=== PATIENT | male | born 1955 | race Caucasian/White ===

== ENCOUNTER → 2018-03-07 13:41 | Outpatient (CLI) | payer OTHER, SELFPAY ==
[2018-03-07 14:48] LABS: Anion Gap 7.9 mmol/L (3-11); BUN 17 mg/dL (7-18); CO2 30.1 mmol/L (21.0-32.0); CREATININE 0.87 mg/dL (0.70-1.30); Calcium 8.5 mg/dL (8.5-10.1); Chloride 105 mmol/L (98-107); Glucose 76 mg/dL (70-100); Potassium 4.2 mmol/L (3.5-5.1); Sodium 143 mmol/L (136-145)
[2018-03-08 10:13] LABS: PSA, Screening 6.3 ng/ml (0-4.5)
[2018-03-08 11:06] LABS: HIV-1/2 Ag & Ab Screen Negative (NEGAT)
[2018-03-08 11:07] LABS: Hepatitis C Ab w Rflx HCV PCR Negative (NEGAT)
== END ==
PROVIDERS: PCP Nurse Practitioner Family; Visit Provider Nurse Practitioner Family
DX: Z13.1 Encounter for screening for diabetes mellitus (principal); Z12.5 Encounter for screening for malignant neoplasm of prostate; Z11.59 Encounter for screening for other viral diseases; Z11.4 Encounter for screening for human immunodeficiency virus [HIV]
CPT/HCPCS: 36415; 80048; 84153; 86803; 87389

== ENCOUNTER 2018-06-27 14:58 | Outpatient (CLI) | payer OTHER, SELFPAY ==
[2018-06-29 08:52] LABS: PSA, Screening 6.4 ng/ml (0-4.5)
== END 2018-06-27 15:18 ==
PROVIDERS: PCP Nurse Practitioner Family; Visit Provider Nurse Practitioner Gerontology
DX: R97.20 Elevated prostate specific antigen [PSA] (principal); Z12.5 Encounter for screening for malignant neoplasm of prostate
CPT/HCPCS: 36415; 84153

== ENCOUNTER 2018-09-29 08:10 | Outpatient (CLI) | payer OTHER, SELFPAY ==
[2018-09-30 09:45] LABS: PSA, Screening 6.4 ng/ml (0-4.5)
== END 2018-09-29 08:30 ==
PROVIDERS: PCP Nurse Practitioner Family; Visit Provider Nurse Practitioner Gerontology
DX: Z12.5 Encounter for screening for malignant neoplasm of prostate (principal); R97.20 Elevated prostate specific antigen [PSA]
CPT/HCPCS: 36415; 84153

== ENCOUNTER 2019-04-06 08:22 | Outpatient (CLI) | payer OTHER, SELFPAY ==
[2019-04-07 11:23] LABS: PSA, Screening 9.6 ng/ml (0-4.5)
== END 2019-04-06 08:42 ==
PROVIDERS: PCP Nurse Practitioner Family; Visit Provider Nurse Practitioner Gerontology
DX: Z12.5 Encounter for screening for malignant neoplasm of prostate (principal)
CPT/HCPCS: 36415; 84153

== ENCOUNTER 2019-04-17 08:24 | Outpatient (CLI) | payer OTHER, SELFPAY ==
[2019-04-18 10:18] LABS: PSA, Screening 7.4 ng/ml (0-4.5)
== END 2019-04-17 08:44 ==
PROVIDERS: PCP Nurse Practitioner Family; Visit Provider Nurse Practitioner Gerontology
DX: R97.20 Elevated prostate specific antigen [PSA] (principal); Z12.5 Encounter for screening for malignant neoplasm of prostate
CPT/HCPCS: 36415; 84153

== ENCOUNTER 2019-07-20 15:12 | Outpatient (CLI) | payer OTHER, SELFPAY | END 2019-07-20 15:32 | PROVIDERS: PCP Nurse Practitioner Family; Visit Provider Nurse Practitioner Gerontology | DX: R97.20 Elevated prostate specific antigen [PSA] (principal); Z12.5 Encounter for screening for malignant neoplasm of prostate | CPT/HCPCS: 36415; 84153 ==

== ENCOUNTER 2019-11-13 00:57 | Outpatient (CLI) | payer OTHER, SELFPAY ==
[2019-11-15 17:35] LABS: Free PSA/PSA Ratio 0.11 ratio
== END 2019-11-13 01:17 ==
PROVIDERS: PCP Nurse Practitioner Family; Visit Provider Nurse Practitioner Gerontology
DX: R97.20 Elevated prostate specific antigen [PSA] (principal)
CPT/HCPCS: 36415; 84153; 84154

== ENCOUNTER 2020-05-07 15:51 | Outpatient (REF) | payer OTHER, SELFPAY ==
[2020-05-08 21:33] LABS: PSA, Screening 8.3 ng/mL (0.0-4.5)
== END 2020-05-07 16:11 ==
LOC: LBN 15:51
PROVIDERS: PCP Nurse Practitioner Family; Visit Provider Nurse Practitioner Gerontology
DX: R97.20 Elevated prostate specific antigen [PSA] (principal)
CPT/HCPCS: 84153

== ENCOUNTER 2021-06-06 03:41 | Outpatient (CLI) | payer OTHER, SELFPAY ==
[2021-06-06 18:26] LABS: PSA, Screening 9.9 ng/mL (0.0-4.5)
== END 2021-06-06 03:42 | disposition home or self-care (01) ==
PROVIDERS: PCP Nurse Practitioner Family; Visit Provider Nurse Practitioner Gerontology
DX: R97.20 Elevated prostate specific antigen [PSA] (principal); Z12.5 Encounter for screening for malignant neoplasm of prostate
CPT/HCPCS: 36415; 84153

== ENCOUNTER 2021-07-17 02:31 | Outpatient (CLI) | payer OTHER, SELFPAY ==
--- NOTE | 2021-07-17 07:15 | DI.US_ITS ---
Exam(s) US PROSTATE BIOPSY EXAM: US PROSTATE BIOPSY CLINICAL HISTORY: rising PSA,R97.20 TECHNIQUE: Ultrasound performed using standard protocol. COMPARISON: No exams were available for comparison FINDINGS: Ultrasound guidance was provided during rectal biopsy performed by the urologist. Radiologist was not present for this procedure. IMPRESSION: DATA REPOSITORY:
--- NOTE | 2021-07-17 10:30 | PROST_PTH ---
PATIENT: Kobe Van LOC: [facility] U#:[id number] AGE/SX: 65/M ROOM: RE07/17/[address]: Karley Barrett DNP : 1955 BED: DIS: 07/17/2021 SPEC #: [id number] RECD: 07/17/21 12:39 STATUS: ASHANTI RE #: [id number] TYREE: 07/17/21 10:[address]: Karley Barrett DEPT: Surgical Specimen RECD BY: Victoria Scanlon ENTERED: 07/17/21 12:46 SP TYPE: PROST OTHR DR: Shanita Matta APRN Tissues: 1 - PROSTATE NEEDLE BIOPSY 2 - PROSTATE NEEDLE BIOPSY 3 - PROSTATE NEEDLE BIOPSY 4 - PROSTATE NEEDLE BIOPSY 5 - PROSTATE NEEDLE BIOPSY 6 - PROSTATE NEEDLE BIOPSY 7 - PROSTATE NEEDLE BIOPSY 8 - PROSTATE NEEDLE BIOPSY 9 - PROSTATE NEEDLE BIOPSY 10 - PROSTATE NEEDLE BIOPSY 11 - PROSTATE NEEDLE BIOPSY 12 - PROSTATE NEEDLE BIOPSY Procedures: GROSS AND MICRO LEVEL 4 Comments: [id number]
--- NOTE | 2021-07-17 10:37 | ROE_ITS ---
Date of service: 07/17/21 Time of Service: 10:37 Operative Note Operative Note DATE OF PROCEDURE: 07/17/21 PRE-OP DIAGNOSIS: Elevated PSA POST-OP DIAGNOSIS: same PROCEDURE: Transrectal ultrasound-guided biopsy of the prostate SURGEON: Alexandre Saleh ANESTHESIA TYPE: Local By Surgeon Refer to Anesthesia Record ESTIMATED BLOOD LOSS: 10 PATHOLOGY: other (prostate biopsies) COMPLICATIONS: None Patient was transported to: no change Patient's condition: stable Implants: None Indications: This is a 65-year-old gentleman who has an elevated PSA of 9.9 ng/mL. He underwent a multiparameter prostate MRI which demonstrated an abnormal area in the mid to apical portion of the prostate concerning for prost ate cancer. He presents for prostate biopsy Findings: Hypoechoic area just to the right of midline in the mid to apical prostate Procedure Description: The patient was given a mechanical and antibiotic bowel prep. He was brought to the radiology suite on 07/17/2021. He was placed in the left lateral position. Transrectal imaging of the prostate was then performed using a variable megahertz transducer. The prostate was imaged in transverse and lateral planes. The prostatic volume was calculated at 28 cc. A periprostatic nerve block was then performed using 1% Xylocaine without epinephrine. A hypoechoic area was identified in the peripheral zone toward the apex of the prostate. This area seemed to be just right of the midline. Laterally directed biopsies were then taken from the prostate. Each biopsy was labeled and sent to pathology. Biopsies from the hypoechoic area were also nadya en. The patient tolerated this procedure with no complications.
== END 2021-07-17 02:51 ==
PROVIDERS: PCP Nurse Practitioner Family; Visit Provider Nurse Practitioner Gerontology
DX: R97.20 Elevated prostate specific antigen [PSA] (principal); C61 Malignant neoplasm of prostate
CPT/HCPCS: 55700; 88305; 76942

== ENCOUNTER 2021-08-27 00:34 | Outpatient (CLI) | payer OTHER, SELFPAY ==
--- NOTE | 2021-08-27 06:57 | DI.NM_ITS ---
Exam(s) NM BONE SCAN WHOLE BODY GRP EXAM: NM BONE SCAN WHOLE BODY GRP CLINICAL HISTORY: r/o mets,PROSTATE CA,C61. TECHNIQUE: This study was performed with IV injection of technetium 99 MDP 24.6 millicuries. Delayed imaging was performed at 3.5 hours post injection. COMPARISON: No exams were available for comparison FINDINGS: There is photopenic zone evident in the left hip consistent with arthroplasty. There is a focus in the upper right side of L1 vertebral body, and there is uptake seen in the lower cervical spine which is probably degenerative. No abnormal uptake in the remainder of the spinal col umn nor in the bones of the pelvis nor in the bones of the lower extremities. Also no abnormal uptak e seen in the rib cages on either side. No abnormal uptake in the shoulder girdles. No abnormal upt zeb seen in the skull. IMPRESSION: 1. No evidence of obvious osseous metastatic disease. However, there is focus of increased uptake se en in the right side of the L1 vertebral body and plain films of this area are recommended as the nex t step. Also cervical spine inferior aspect DATA REPOSITORY:
== END 2021-08-27 00:54 ==
PROVIDERS: PCP Nurse Practitioner Family; Visit Provider Urology
DX: C61 Malignant neoplasm of prostate (principal); R93.7 Abnormal findings on diagnostic imaging of other parts of musculoskeletal system; Z96.642 Presence of left artificial hip joint
CPT/HCPCS: 78306

== ENCOUNTER 2021-10-01 01:48 | Outpatient (CLI) | payer OTHER, SELFPAY ==
--- NOTE | 2021-10-01 | DI.RAD_ITS ---
Exam(s) XR CHEST 2V PA LATERAL EXAM: XR CHEST 2V PA LATERAL CLINICAL HISTORY: PROSTATE CA, PREOP,C61. TECHNIQUE: 2D digital imaging was performed. COMPARISON: No exams were available for comparison FINDINGS: 2 views: Heart size is normal. The mediastinum is not widened. Right lung is clear. There is scarring or platelike atelectasis in the left lung base, specifically in the inferior lingular segment. There are no pleural effusions IMPRESSION: Scarring or platelike atelectasis in the left lung base. No pleural effusions. DATA REPOSITORY: RADIATION DOSE DELIVERED:
== END 2021-10-01 02:08 ==
PROVIDERS: PCP Nurse Practitioner; Visit Provider Radiology Radiation Oncology
DX: C61 Malignant neoplasm of prostate (principal)
CPT/HCPCS: 71046

== ENCOUNTER 2021-10-01 01:48 | Outpatient (CLI) | payer OTHER, SELFPAY ==
--- NOTE | 2021-10-01 06:30 | DI.RAD_ITS ---
Exam(s) XR LUMBAR SPINE COMPLETE EXAM: XR LUMBAR SPINE COMPLETE CLINICAL HISTORY: uptake on bone scan. ? degenerative disease,c61. TECHNIQUE: 2D digital imaging was performed. COMPARISON: No exams were available for comparison FINDINGS: Five views of the lumbar spine There is no evidence of fracture, listhesis, nor pars interarticularis defects. There is advanced di sc space narrowing at L3-4 and L5-S1 levels and milder disc space narrowing at L4-5 level. Advanced disc space narrowing at T12-L1 level noted. Also moderate disc space narrowing at T11-T12. Only minimal facet degenerative changes. No scoliosis. Sacroiliac joints appear unremarkable. There is a left hip prosthesis. IMPRESSION: Multilevel degenerative disc disease as described above. If clinically indicated further study MRI c an be performed DATA REPOSITORY: RADIATION DOSE DELIVERED:
== END 2021-10-01 02:08 ==
PROVIDERS: PCP Nurse Practitioner; Visit Provider Nurse Practitioner
DX: C61 Malignant neoplasm of prostate (principal); M47.816 Spondylosis without myelopathy or radiculopathy, lumbar region; M47.817 Spondylosis without myelopathy or radiculopathy, lumbosacral region; M48.061 Spinal stenosis, lumbar region without neurogenic claudication; M48.07 Spinal stenosis, lumbosacral region; M48.05 Spinal stenosis, thoracolumbar region
CPT/HCPCS: 72110

== ENCOUNTER 2021-10-29 03:14 | Outpatient (CLI) | payer OTHER, SELFPAY ==
[2021-10-29 12:11] LABS: Abs Immature Grans 0.02 10^3/uL (0.0-0.06); Absolute Basophil Count 0.04 10^3/uL (0.0-0.2); Absolute Eosinophil Count 0.05 10^3/uL (0.0-0.7); Absolute Lymphocyte Count 0.99 10^3/uL (1.2-3.4); Absolute Monocyte Count 0.55 10^3/uL (0.1-0.8); Absolute Neutrophil Count 5.48 10^3/uL (1.2-6.7); Basophils % 0.6; Eosinophils % 0.7; HGB 14.9 g/dL (13.5-17.5); Immature Grans % 0.3; Lymphocytes % 13.9; MCH 26.6 pg (27.0-33.0); MCHC 31.7 % (32.0-36.0); MCV 83.8 fL (80-95); MPV 11.5 fL (8.0-11.0); Monocytes % 7.7; Neutrophils % 76.8; Nucleated RBC 0 %; Platelet Count 210 10^3/uL (130-400); RBC 5.61 10^6/uL (4.36-5.78); RDW 13.6 % (11.8-14.1); RDW-SD 42.1 fL; WBC 7.13 10^3/uL (4.4-10.8)
[2021-10-29 12:12] LABS: Bilirubin Negative (Negative); Blood Negative (Negative); Clarity Clear (Clear); Glucose Negative (Negative); Ketones Negative (Negative); Leukocyte Esterase Negative (Negative); Nitrite Negative (Negative); Specific Gravity >= 1.030 (1.005-1.025); Urobilinogen 0.2 EU/dL (Up TO 0.2); pH 5.5 (5-8)
[2021-10-29 12:23] LABS: Bacteria Negative HPF (Negative); C & S Indicated? No; Casts 0-2 Hyaline LPF (Negative); Crystals Negative HPF (Negative); Epithelial Cells Rare HPF (Negative); Mucus Trace (Negative); RBC Negative HPF (0-2); WBC Negative HPF (0-5)
[2021-10-29 13:54] LABS: ALT 29 U/L (16-63); AST 22 U/L (15-37); Albumin 3.7 g/dL (3.4-5.0); Alkaline Phosphatase 81 U/L (46-116); Anion Gap 8.3 mmol/L (3-11); BUN 17 mg/dL (7-18); Bilirubin, Total 0.5 mg/dL (0.2-1.0); CO2 29.7 mmol/L (21.0-32.0); Calcium 8.7 mg/dL (8.5-10.1); Calculated LDL 78 mg/dL (<100); Chloride 105 mmol/L (98-107); Cholesterol 153 mg/dL (<200); Glucose 98 mg/dL (74-106); HDL Cholesterol 43 mg/dL (40-60); Potassium 4.2 mmol/L (3.5-5.1); Sodium 143 mmol/L (136-145); Total Protein 6.9 g/dL (6.4-8.2); Triglyceride 161 mg/dL (<150)
== END 2021-10-29 03:15 | disposition home or self-care (01) ==
LOC: LBO 03:15
PROVIDERS: PCP Nurse Practitioner; Visit Provider Surgery
DX: C61 Malignant neoplasm of prostate (principal); Z13.220 Encounter for screening for lipoid disorders
CPT/HCPCS: 36415; 80053; 80061; 85027; 81003; 81015; 85025

== ENCOUNTER 2021-11-04 11:54 | Outpatient (CLI) | payer OTHER, SELFPAY ==
--- NOTE | 2021-11-04 12:45 | RT.EKG_ITS ---
APPROVED REPORT Exam: Resting ECG Reason for Exam: preop Patient Location: O HR:62 bpm ECG Measurements Heart Rate 62 AXIS IA 169 P 46 QRSd 105 QRS -66 QT 414 T -25 QTc 420 Conclusion Sinus rhythm...normal P axis, V-rate 60- 99 Left anterior fascicular block...axis(240,-40), init forces inf Nonspecific T abnormalities, inferior leads...T <-0.10mV, II III aVF
== END 2021-11-04 11:55 | disposition home or self-care (01) ==
LOC: RT 11:57
PROVIDERS: PCP Nurse Practitioner; Visit Provider Surgery

== ENCOUNTER 2021-11-10 09:19 | Outpatient (CLI) | payer OTHER, SELFPAY ==
[2021-11-10 11:35] LABS: Source Nasal/Nares
[2021-11-10 14:03] LABS: COVID-19 PCR Negative (Negative)
== END 2021-11-10 09:20 | disposition home or self-care (01) ==
PROVIDERS: PCP Nurse Practitioner; Visit Provider Surgery
DX: Z20.822 Contact with and (suspected) exposure to COVID-19 (principal); Z01.818 Encounter for other preprocedural examination
CPT/HCPCS: 87635

== ENCOUNTER 2022-03-05 03:48 | Outpatient (CLI) | payer OTHER, SELFPAY ==
[2022-03-06 18:49] LABS: PSA, Ultrasensitive <0.01 ng/mL (<= 4.5)
== END 2022-03-05 03:49 | disposition home or self-care (01) ==
LOC: LBO 03:48
PROVIDERS: PCP Nurse Practitioner; Visit Provider Nurse Practitioner Gerontology
DX: C61 Malignant neoplasm of prostate (principal)
CPT/HCPCS: 36415; 84153

== ENCOUNTER 2022-05-29 16:59 | Outpatient (CLI) | payer OTHER, SELFPAY ==
[2022-06-02 15:52] LABS: PSA, Ultrasensitive <0.01 ng/mL (<= 4.5)
== END 2022-05-29 17:00 | disposition home or self-care (01) ==
LOC: LBO 17:00
PROVIDERS: Nurse Practitioner Gerontology; PCP Nurse Practitioner; Visit Provider Nurse Practitioner
DX: C61 Malignant neoplasm of prostate (principal)
CPT/HCPCS: 36415; 84153

== ENCOUNTER 2022-09-10 10:26 | Outpatient (CLI) | payer OTHER, SELFPAY ==
[2022-09-14 14:43] LABS: PSA, Ultrasensitive <0.01 ng/mL (<= 4.5)
== END 2022-09-10 10:27 | disposition home or self-care (01) ==
LOC: LBO 10:27
PROVIDERS: PCP Nurse Practitioner; Visit Provider Nurse Practitioner Gerontology
DX: C61 Malignant neoplasm of prostate (principal)
CPT/HCPCS: 36415; 84153

== ENCOUNTER 2023-03-08 13:07 | Outpatient (CLI) | payer OTHER, SELFPAY ==
[2023-03-10 11:22] LABS: PSA, Ultrasensitive <0.01 ng/mL (<= 4.5)
== END 2023-03-08 13:08 | disposition home or self-care (01) ==
LOC: LBO 13:11
PROVIDERS: PCP Nurse Practitioner; Visit Provider Nurse Practitioner Gerontology
DX: C61 Malignant neoplasm of prostate (principal)
CPT/HCPCS: 36415; 84153

== ENCOUNTER 2023-09-02 12:27 | Outpatient (CLI) | payer OTHER, SELFPAY ==
[2023-09-04 10:26] LABS: PSA, Ultrasensitive <0.01 ng/mL (<= 4.5)
== END 2023-09-02 12:28 | disposition home or self-care (01) ==
LOC: LBO 12:29
PROVIDERS: PCP Nurse Practitioner; Visit Provider Nurse Practitioner Gerontology
DX: C61 Malignant neoplasm of prostate (principal)
CPT/HCPCS: 36415; 84153

== ENCOUNTER 2024-03-02 16:44 | Outpatient (CLI) | payer OTHER, SELFPAY ==
[2024-03-02 15:27] LABS: Abs Immature Grans 0.01 10^3/uL (0.0-0.06); Absolute Basophil Count 0.04 10^3/uL (0.0-0.2); Absolute Eosinophil Count 0.12 10^3/uL (0.0-0.7); Absolute Lymphocyte Count 1.44 10^3/uL (1.2-3.4); Absolute Monocyte Count 0.67 10^3/uL (0.1-0.8); Absolute Neutrophil Count 4.57 10^3/uL (1.2-6.7); Basophils % 0.6 %; Eosinophils % 1.8 %; HCT 50.1 % (40.0-50.0); HGB 16.4 g/dL (13.5-17.5); Immature Grans % 0.1 %; MCH 27.5 pg (27.0-33.0); MCHC 32.7 % (32.0-36.0); MCV 84 fL (80-95); MPV 11.4 fL (8.0-11.0); Monocytes % 9.8 %; Neutrophils % 66.7 %; Platelet Count 213 10^3/uL (130-400); RBC 5.97 10^6/uL (4.36-5.78); RDW 13.3 % (11.8-14.1); RDW-SD 41.2 fL; WBC 6.85 10^3/uL (4.4-10.8)
[2024-03-02 18:01] LABS: ALT 36 U/L (16-63); AST 26 U/L (15-37); Alkaline Phosphatase 83 U/L (46-116); Anion Gap 6.6 mmol/L (3-11); BUN 20 mg/dL (7-18); Bilirubin, Total 0.42 mg/dL (0.2-1.0); CO2 32.4 mmol/L (21.0-32.0); Calcium 9.2 mg/dL (8.5-10.1); Calculated LDL 93 mg/dL (<100); Chloride 103 mmol/L (98-107); Cholesterol 179 mg/dL (<200); Estimated GFR 81.98 (mL/min/1.73m2); Glucose 98 mg/dL (74-106); HDL Cholesterol 45 mg/dL (40-60); Potassium 4.7 mmol/L (3.5-5.1); Sodium 142 mmol/L (136-145); Total Protein 7.4 g/dL (6.4-8.2); Triglyceride 207 mg/dL (<150)
[2024-03-04 10:44] LABS: PSA, Ultrasensitive <0.01 ng/mL (<= 4.5)
== END 2024-03-02 16:45 | disposition home or self-care (01) ==
LOC: LBO 16:44
PROVIDERS: Nurse Practitioner Gerontology; PCP Nurse Practitioner; Visit Provider Nurse Practitioner
DX: C61 Malignant neoplasm of prostate (principal); Z13.220 Encounter for screening for lipoid disorders
CPT/HCPCS: 36415; 80053; 80061; 84153; 85025

== ENCOUNTER 2024-08-29 03:22 | Outpatient (CLI) | payer OTHER, SELFPAY ==
[2024-08-31 17:21] LABS: PSA, Ultrasensitive <0.01 ng/mL (<= 4.5)
== END 2024-08-29 03:23 | disposition home or self-care (01) ==
LOC: LBO 03:22
PROVIDERS: PCP Nurse Practitioner; Visit Provider Nurse Practitioner Gerontology
DX: C61 Malignant neoplasm of prostate (principal)
CPT/HCPCS: 36415; 84153

== ENCOUNTER 2025-02-27 03:29 | Outpatient (CLI) | payer OTHER, SELFPAY ==
[2025-02-27 08:19] LABS: Glucose 117 mg/dL (74-106)
[2025-02-27 12:17] LABS: Calculated LDL 91 mg/dL (<100); Cholesterol 151 mg/dL (<200); HDL Cholesterol 46 mg/dL (>or=40); Triglyceride 70 mg/dL (<150)
== END 2025-02-27 03:30 | disposition home or self-care (01) ==
LOC: LBO 03:29
PROVIDERS: Nurse Practitioner Gerontology; PCP Nurse Practitioner Family; Visit Provider Nurse Practitioner Family
DX: C61 Malignant neoplasm of prostate (principal); Z00.00 Encounter for general adult medical examination without abnormal findings
CPT/HCPCS: 36415; 80061; 82947; 84153

== ENCOUNTER 2025-05-02 14:38 | Outpatient (CLI) | payer OTHER, SELFPAY ==
--- NOTE | 2025-05-02 14:30 | RT.EKG_ITS ---
APPROVED REPORT Exam: Resting ECG Reason for Exam: HTN Patient Location: O HR:61 bpm ECG Measurements Heart Rate 61 AXIS MI 169 P 21 QRSd 104 QRS -61 QT 412 T -20 QTc 415 Conclusion Sinus rhythm...normal P axis, V-rate 50- 99 Left anterior fascicular block...axis(240,-40), init forces inf Abnormal R-wave progression, late transition...QRS area<0 in V5/V6
== END 2025-05-02 14:39 | disposition home or self-care (01) ==
LOC: DI.KIM 14:39
PROVIDERS: PCP Nurse Practitioner Family; Visit Provider Nurse Practitioner Family
DX: I10 Essential (primary) hypertension (principal); I44.4 Left anterior fascicular block
CPT/HCPCS: 93010

== ENCOUNTER 2025-05-11 14:13 | Outpatient (CLI) | payer OTHER, SELFPAY ==
[2025-05-11 11:15] LABS: Glucose Negative (Negative)
[2025-05-11 11:22] LABS: C & S Indicated? No; RBC 0-2 HPF (0-2); WBC Negative HPF (0-5)
[2025-05-11 11:34] LABS: Anion Gap 5.7 mmol/L (3-11); BUN 22 mg/dL (7-18); CO2 31.3 mmol/L (21.0-32.0); Calcium 8.6 mg/dL (8.5-10.1); Chloride 103 mmol/L (98-107); Estimated GFR 81.47 (mL/min/1.73m2); Glucose 84 mg/dL (74-106); Potassium 4.3 mmol/L (3.5-5.1); Sodium 140 mmol/L (136-145); TSH 3.19 uIU/mL (0.36-3.74)
[2025-05-12 13:33] LABS: Lab Add On Test DONE
== END 2025-05-11 14:14 | disposition home or self-care (01) ==
LOC: LBO 14:14
PROVIDERS: PCP Nurse Practitioner Family; Visit Provider Nurse Practitioner Family
DX: I10 Essential (primary) hypertension (principal); R31.9 Hematuria, unspecified
CPT/HCPCS: 36415; 80048; 81003; 81015; 84443

== ENCOUNTER 2025-06-11 09:39 | Outpatient (CLI) | payer OTHER, SELFPAY ==
[2025-06-11 09:27] LABS: Anion Gap 4.3 mmol/L (3-11); BUN 19 mg/dL (9-23); CO2 28.7 mmol/L (20.0-31.0); Calcium 8.3 mg/dL (8.3-10.6); Chloride 106 mmol/L (98-107); Glucose 99 mg/dL (74-106); Potassium 4.4 mmol/L (3.5-5.1); Sodium 139 mmol/L (136-145)
== END 2025-06-11 09:40 | disposition home or self-care (01) ==
LOC: LBO 09:39
PROVIDERS: PCP Nurse Practitioner Family; Visit Provider Nurse Practitioner Family
DX: I10 Essential (primary) hypertension (principal)
CPT/HCPCS: 36415; 80048